=== PATIENT | male | born 1990 | race African-American/Black ===

== ENCOUNTER 2016-09-26 21:34 | Emergency (ER) | payer OTHER ==
[~2016-09-26] VITALS: Ht 193 cm; Wt 83.9 kg
[~2016-09-26 21:34] MED LIST: DIPH50VI14 IV; Divalproex Sodium PO; EPIN0.3P3 IJ; ESCI10TA PO; INSU100V28 SQ; QUET100T PO
[2016-09-26 22:06] LABS: BASOPHILS % (AUTO) 0.2 % (0.0-2.0); DIFF TOTAL % 100 %; EOSINOPHILS % (AUTO) 0.2 % (0.0-6.0); HEMATOCRIT 40 % (39-51); HEMOGLOBIN 13.6 g/dL (13.5-17.5); LYMPHOCYTES # (AUTO) 2.3 /CMM (0.8-4.8); LYMPHOCYTES % (AUTO) 12.3 % (20.0-44.0); MEAN CORPUSCULAR HEMOGLOBIN 33 PG (26.0-33.0); MEAN CORPUSCULAR HGB CONC 34 g/dl (31.0-36.0); MEAN CORPUSCULAR VOLUME 98 fL (80-96); MONOCYTES % (AUTO) 10.4 % (2.0-12.0); NEUTROPHILS # (AUTO) 14.7 /CMM (1.8-8.9); NEUTROPHILS % (AUTO) 76.9 % (43.0-81.0); PLATELET COUNT (AUTO) 316 /CMM (150-450); RED BLOOD CELL COUNT(AUTO) 4.12 MIL/uL (4.5-6.0); WHITE BLOOD COUNT (AUTO) 19.1 K/uL (4.3-11.0)
[2016-09-26 22:13] LABS: ANION GAP 14 (5-14); CALCIUM, SERUM 10.2 mg/dL (8.5-10.1); CARBON DIOXIDE 29 mmol/L (21-32); CHLORIDE 95 mmol/L (98-107); CREATININE 1.2 mg/dL (0.6-1.3); GFR 88 mL/min (>60); GLUCOSE 95 mg/dL (74-106); POTASSIUM 4.4 mmol/L (3.5-5.1); SODIUM SERUM 134 mmol/L (136-145); UREA NITROGEN, BLOOD 30 mg/dL (7-18)
[2016-09-26 22:19] LABS: ACETAMINOPHEN 0 ug/ml (10-30); ALANINE AMINOTRANSFERASE 44 U/L (12-78); ALBUMIN 4.6 g/dL (3.4-5.0); ASPARTATE AMINOTRANSFERASE 92 U/L (15-37); BILIRUBIN,DIRECT 0.2 mg/dL (0.0-0.2); BILIRUBIN,TOTAL 1.1 mg/dL (0.2-1.0); INDIRECT BILIRUBIN 0.9 mg/dL (0.0-1.1); SALICYLATE < 0.2 mg/dL (2.8-20.0); TOTAL PROTEIN, SERUM 9.4 g/dL (6.4-8.2)
[2016-09-26 22:41] LABS: PHENCYCLIDINE SCREEN,URINE NEGATIVE (NEGATIVE)
[2016-09-26 22:44] LABS: CANNABINOID, URINE POSITIVE (NEGATIVE); KETONES,URINE TRACE (NEGATIVE); LEUKOCYTE ESTERASE ,URINE NEGATIVE (NEGATIVE); PH,URINE 5.5 (5.0-8.0)
[2016-09-26 22:55] LABS: ADD UA MICROSCOPIC YES
[2016-09-26 23:01] LABS: ADD URINE CULTURE NO; RBC,URINE 0-2 /HPF (0-2); WBC,URINE 0-2 /HPF (0-3)
[2016-09-27] MEDS ORDERED: OLANZAPINE 5 MG TABLET ONE (01:20)
[2016-09-27] MEDS ORDERED: OLANZAPINE 5 MG TABLET PO ONE (01:30)
[2016-09-27 06:08] VITALS: BP 139/73
== END 2016-09-27 06:22 | disposition home or self-care (01) ==
LOC: ER 21:35
DX: F19.10 Other psychoactive substance abuse, uncomplicated (principal); F20.9 Schizophrenia, unspecified; R44.0 Auditory hallucinations; F17.200 Nicotine dependence, unspecified, uncomplicated; Z79.4 Long term (current) use of insulin
CPT/HCPCS: 36415; 71010-TC; 80048-TC; 80076-TC; 80305; 81000-TC; 85025-TC; A4606; G6038-TC; G6039-TC; G6040-TC; Z7610

== ENCOUNTER 2016-10-19 01:22 | Emergency (ER) | payer OTHER ==
[~2016-10-19] VITALS: Ht 198.1 cm; Wt 79.4 kg
[2016-10-19 03:37] LABS: ANION GAP 13 (5-14); CALCIUM, SERUM 8.7 mg/dL (8.5-10.1); CARBON DIOXIDE 27 mmol/L (21-32); CHLORIDE 101 mmol/L (98-107); GFR 109 mL/min (>60); GLUCOSE 94 mg/dL (74-106); SODIUM SERUM 137 mmol/L (136-145); UREA NITROGEN, BLOOD 20 mg/dL (7-18)
[2016-10-19 03:41] LABS: BASOPHILS % (AUTO) 0.3 % (0.0-2.0); DIFF TOTAL % 100 %; EOSINOPHILS # (AUTO) 0.3 /CMM (0.0-0.7); EOSINOPHILS % (AUTO) 2.7 % (0.0-6.0); HEMATOCRIT 38 % (39-51); HEMOGLOBIN 12.8 g/dL (13.5-17.5); LYMPHOCYTES # (AUTO) 2.8 /CMM (0.8-4.8); LYMPHOCYTES % (AUTO) 24.8 % (20.0-44.0); MEAN CORPUSCULAR HEMOGLOBIN 33 PG (26.0-33.0); MEAN CORPUSCULAR HGB CONC 34 g/dl (31.0-36.0); MEAN CORPUSCULAR VOLUME 99 fL (80-96); MONOCYTES # (AUTO) 1.9 /CMM (0.1-1.30); MONOCYTES % (AUTO) 17.3 % (2.0-12.0); NEUTROPHILS # (AUTO) 6.2 /CMM (1.8-8.9); NEUTROPHILS % (AUTO) 54.9 % (43.0-81.0); PLATELET COUNT (AUTO) 292 /CMM (150-450); RED BLOOD CELL COUNT(AUTO) 3.85 MIL/uL (4.5-6.0); WHITE BLOOD COUNT (AUTO) 11.2 K/uL (4.3-11.0)
[2016-10-19 05:52] VITALS: BP 125/82
== END 2016-10-19 05:54 | disposition home or self-care (01) ==
LOC: ER 01:26
DX: R45.851 Suicidal ideations (principal); Z91.14 Patient's other noncompliance with medication regimen; F20.9 Schizophrenia, unspecified; F17.210 Nicotine dependence, cigarettes, uncomplicated; Z88.8 Allergy status to other drugs, medicaments and biological substances
CPT/HCPCS: 36415; 80048-TC; 85025-TC; A4606; G6040-TC; Z7610

== ENCOUNTER 2017-02-13 04:36 | Emergency (ER) | payer OTHER ==
[~2017-02-13] VITALS: Ht 198.1 cm; Wt 81.6 kg
[2017-02-13 04:40] VITALS: BP 129/104
== END 2017-02-13 05:09 | disposition home or self-care (01) ==
LOC: ER 04:39
DX: J06.9 Acute upper respiratory infection, unspecified (principal); I10 Essential (primary) hypertension; F20.9 Schizophrenia, unspecified; F17.200 Nicotine dependence, unspecified, uncomplicated; Z88.8 Allergy status to other drugs, medicaments and biological substances
CPT/HCPCS: 99281; A4606; Z7610; Z7502

== ENCOUNTER 2017-02-14 01:09 | Emergency (ER) | payer OTHER | END 2017-02-14 01:18 | disposition left against medical advice (07) | LOC: ER 01:09 | DX: Z53.21 Procedure and treatment not carried out due to patient leaving prior to being seen by health care provider (principal) ==

== ENCOUNTER 2017-07-14 17:52 | Emergency (ER) | payer MEDICAID, OTHER ==
[~2017-07-14] VITALS: Ht 185.4 cm; Wt 79.4 kg
[2017-07-14 18:24] LABS: BASOPHILS # (AUTO) 0.1 /CMM (0.0-0.2); BASOPHILS % (AUTO) 0.6 % (0.0-2.0); EOSINOPHILS # (AUTO) 0.3 /CMM (0.0-0.7); EOSINOPHILS % (AUTO) 2.9 % (0.0-6.0); HEMATOCRIT 38 % (39-51); HEMOGLOBIN 12.9 g/dL (13.5-17.5); LYMPHOCYTES # (AUTO) 2.3 /CMM (0.8-4.8); LYMPHOCYTES % (AUTO) 25.7 % (20.0-44.0); MEAN CORPUSCULAR HEMOGLOBIN 33 PG (26.0-33.0); MEAN CORPUSCULAR HGB CONC 34 g/dl (31.0-36.0); MEAN CORPUSCULAR VOLUME 97 fL (80-96); MONOCYTES # (AUTO) 1.3 /CMM (0.1-1.30); MONOCYTES % (AUTO) 13.9 % (2.0-12.0); NEUTROPHILS % (AUTO) 56.9 % (43.0-81.0); PLATELET COUNT (AUTO) 240 /CMM (150-450); RDW COEFFICIENT OF VARIATION 12.1 (11.5-15.0); RED BLOOD CELL COUNT(AUTO) 3.87 MIL/uL (4.5-6.0)
[2017-07-14 18:33] LABS: CARBON DIOXIDE 29 mmol/L (21-32); CHLORIDE 99 mmol/L (98-107); CREATININE 1.2 mg/dL (0.6-1.3); GLUCOSE 125 mg/dL (74-106); POTASSIUM 3.6 mmol/L (3.5-5.1); SODIUM SERUM 134 mmol/L (136-145); UREA NITROGEN, BLOOD 15 mg/dL (7-18)
[2017-07-14 18:34] LABS: APPEARANCE,URINE Clear (CLEAR); BILIRUBIN,URINE MODERATE (NEGATIVE); BLOOD, URINE Negative Ery/uL (NEGATIVE); COLOR,URINE Yellow (YELLOW); KETONES,URINE Trace (NEGATIVE); LEUKOCYTE ESTERASE ,URINE Negative (NEGATIVE); NITRITE, URINE Negative (NEGATIVE); PROTEIN,URINE 100 mg/dl (NEGATIVE); UGLUCOSE Negative (NEGATIVE)
[2017-07-14 18:39] LABS: ALANINE AMINOTRANSFERASE 58 U/L (12-78); ALBUMIN 3.9 g/dL (3.4-5.0); ALCOHOL, BLOOD < 3 mg/dL (0-0); ALKALINE PHOSPHATASE 120 U/L (46-116); ASPARTATE AMINOTRANSFERASE 60 U/L (15-37); BILIRUBIN,DIRECT 0.1 mg/dL (0.0-0.2); BILIRUBIN,TOTAL 0.6 mg/dL (0.2-1.0); TOTAL PROTEIN, SERUM 7.7 g/dL (6.4-8.2)
[2017-07-14 18:40] LABS: ACETAMINOPHEN < 2 ug/ml (10-30); SALICYLATE 0.9 mg/dL (2.8-20.0)
[2017-07-14 18:54] LABS: BACTERIA,URINE Rare /HPF (None Seen); RBC,URINE 0-2 /HPF (0-2); SQUAMOUS EPITHELIAL CELL,UR Few /HPF (None Seen); WBC,URINE 0-2 /HPF (0-3)
--- NOTE | 2017-07-14 19:45 | NUR ---
RECEIVED PATIENT IN STABLE CONDITION. WILL CONTINUE TO MONITOR.
--- NOTE | 2017-07-14 21:38 | NUR ---
CALLED [facility] FOR TRANSPORTATION GOING TO [facility], ETA [phone]
[2017-07-14 22:54] VITALS: BP 124/62
--- NOTE | 2017-07-14 23:01 | NUR ---
REPORT GIVEN TO URBAN AT [facility]. PATIENT ON 5150, EMT AT BEDSIDE FOR TRANSFER. REPORT GIVEN TO EMT WELL. VITALS STABLE. PATIENT TRANSFERED TO [facility] VIA STRETCHER/EMT.
== END 2017-07-14 22:57 ==
LOC: ER 17:54
DX: R45.851 Suicidal ideations (principal); F20.9 Schizophrenia, unspecified; F12.10 Cannabis abuse, uncomplicated; F31.9 Bipolar disorder, unspecified; D64.9 Anemia, unspecified; R79.89 Other specified abnormal findings of blood chemistry; F15.10 Other stimulant abuse, uncomplicated; F19.10 Other psychoactive substance abuse, uncomplicated; F17.200 Nicotine dependence, unspecified, uncomplicated; F10.10 Alcohol abuse, uncomplicated; Z79.4 Long term (current) use of insulin; Z88.8 Allergy status to other drugs, medicaments and biological substances
CPT/HCPCS: 36415; 80048; 80076; 80305; 80329; 81001; 85025; 99285; A4606; G0480 ×2; Z7610; 81000-TC

== ENCOUNTER 2017-09-19 04:21 | Emergency (ER) | payer MEDICAID ==
[~2017-09-19] VITALS: Ht 188 cm; Wt 81.6 kg
[2017-09-19 04:51] VITALS: BP 135/78
[2017-09-19] MEDS ORDERED: ONDANSETRON 4 MG TAB.RAPDIS ONE (07:24)
[2017-09-19] MEDS ORDERED: ONDANSETRON 4 MG TAB.RAPDIS SL ONE (07:30)
== END 2017-09-19 07:39 | disposition home or self-care (01) ==
LOC: ER 04:24
DX: R11.10 Vomiting, unspecified (principal); F31.9 Bipolar disorder, unspecified; F20.9 Schizophrenia, unspecified; F10.10 Alcohol abuse, uncomplicated; F17.200 Nicotine dependence, unspecified, uncomplicated; Z88.8 Allergy status to other drugs, medicaments and biological substances; Z79.4 Long term (current) use of insulin
CPT/HCPCS: 99283; A4606; Q0162; Z7610

== ENCOUNTER 2018-04-21 01:06 | Emergency (ER) | payer MEDICAID ==
[~2018-04-21] VITALS: Ht 193 cm; Wt 80.7 kg
--- NOTE | 2018-04-21 01:23 | NUR ---
BIB SELF C/C "IM HAVING RACING THOUGHTS, I WANT MED CLEARANCE FOR SO [facility]". PT STATES "I HEAR VOICES TO HURT MYSELF, AND SOMETIMES I DO WANT TO HURT MYSELF BY TAKING A DEEP BREATH AND JUMPING INTO THE WATER WITH MY BOOKS". PT DENIES HI. PT IS AAOX4. PT IS CALM AND COOPERATIVE LAYING IN BED WITH WARM BLANKET PROVIDED. SI PRECAUTIONS IN PLACE. PT BELONGINGS REMOVED FROM PT. PT PLACED IN GOWN AND ON APARTMENT COORDINATOR AND POX. RESP EVEN UNLABORED. NO S/S OF ACUTE DISTRESS NOTED. SKIN WARM AND DRY. AWAITLAURA MONTERROSO FOR EVAL.
[2018-04-21 01:32] LABS: BASOPHILS # (AUTO) 0.1 /CMM (0.0-0.2); BASOPHILS % (AUTO) 0.7 % (0.0-2.0); HEMATOCRIT 36 % (39-51); HEMOGLOBIN 12.1 g/dL (13.5-17.5); LYMPHOCYTES # (AUTO) 3.6 /CMM (0.8-4.8); LYMPHOCYTES % (AUTO) 31.1 % (20.0-44.0); MEAN CORPUSCULAR HEMOGLOBIN 33 PG (26.0-33.0); MEAN CORPUSCULAR HGB CONC 34 g/dl (31.0-36.0); MEAN CORPUSCULAR VOLUME 98 fL (80-96); MONOCYTES # (AUTO) 1.7 /CMM (0.1-1.30); MONOCYTES % (AUTO) 14.8 % (2.0-12.0); NEUTROPHILS # (AUTO) 5.5 /CMM (1.8-8.9); NEUTROPHILS % (AUTO) 49.4 % (43.0-81.0); PLATELET COUNT (AUTO) 273 /CMM (150-450); RDW COEFFICIENT OF VARIATION 12.2 (11.5-15.0); RED BLOOD CELL COUNT(AUTO) 3.64 MIL/uL (4.5-6.0); WHITE BLOOD COUNT (AUTO) 11.4 K/uL (4.3-11.0)
[2018-04-21 01:47] LABS: APPEARANCE,URINE CLEAR (CLEAR); BILIRUBIN,URINE NEGATIVE (NEGATIVE); BLOOD, URINE NEGATIVE Ery/uL (NEGATIVE); COLOR,URINE YELLOW (YELLOW); KETONES,URINE NEGATIVE (NEGATIVE); LEUKOCYTE ESTERASE ,URINE NEGATIVE (NEGATIVE); NITRITE, URINE NEGATIVE (NEGATIVE); PROTEIN,URINE NEGATIVE (NEGATIVE); UGLUCOSE NEGATIVE (NEGATIVE)
[2018-04-21 01:48] LABS: CALCIUM, SERUM 8.2 mg/dL (8.5-10.1); CARBON DIOXIDE 28 mmol/L (21-32); CHLORIDE 100 mmol/L (98-107); CREATININE 1.1 mg/dL (0.6-1.3); GLUCOSE 108 mg/dL (74-106); POTASSIUM 3.4 mmol/L (3.5-5.1); SODIUM SERUM 134 mmol/L (136-145); UREA NITROGEN, BLOOD 13 mg/dL (7-18)
--- NOTE | 2018-04-21 01:49 | NUR ---
ERMIAS MARTÍNEZ BEDSIDE WITH PT.
[2018-04-21 01:53] LABS: ALANINE AMINOTRANSFERASE 25 U/L (12-78); ALBUMIN 3.5 g/dL (3.4-5.0); ALCOHOL, BLOOD < 3 mg/dL (0-0); ALKALINE PHOSPHATASE 115 U/L (46-116); ASPARTATE AMINOTRANSFERASE 33 U/L (15-37); BILIRUBIN,DIRECT 0.1 mg/dL (0.0-0.2); BILIRUBIN,TOTAL 0.4 mg/dL (0.2-1.0); TOTAL PROTEIN, SERUM 7.3 g/dL (6.4-8.2)
[2018-04-21 01:54] LABS: ACETAMINOPHEN 0 ug/ml (10-30); SALICYLATE 2.1 mg/dL (2.8-20.0)
[2018-04-21 02:08] LABS: BACTERIA,URINE None seen /HPF (None Seen); MUCUS,URINE Few /LPF (None Seen); RBC,URINE NONE SEEN /HPF (0-2); SQUAMOUS EPITHELIAL CELL,UR Few /HPF (None Seen); WBC,URINE 0-2 /HPF (0-3)
--- NOTE | 2018-04-21 02:36 | NUR ---
Patient is resting comfortably in bed with eyes closed. Easily aroused. VSS
--- NOTE | 2018-04-21 03:56 | NUR ---
NO S/S OF DISTRESS NOTED. PT RESTING IN BED. VSS.
--- NOTE | 2018-04-21 04:02 | NUR ---
eta for [facility] transport 1.5hr trip number [id number]
--- NOTE | 2018-04-21 04:31 | NUR ---
report given to ivis lopez for mj.
--- NOTE | 2018-04-21 05:27 | NUR ---
ambulnz bedside for pt transport to [facility]. no s/s of distress upon discharge. Patient discharged to [facility] nuys in stable condition. Written and verbal after care instructions given. Patient verbalizes understanding of instruction.
[2018-04-21 05:32] VITALS: BP 149/78
== END 2018-04-21 05:32 | disposition home or self-care (01) ==
LOC: ER 01:08
DX: R45.851 Suicidal ideations (principal); F20.9 Schizophrenia, unspecified; F31.9 Bipolar disorder, unspecified; F10.10 Alcohol abuse, uncomplicated; F17.200 Nicotine dependence, unspecified, uncomplicated; Y90.0 Blood alcohol level of less than 20 mg/100 ml; Z88.8 Allergy status to other drugs, medicaments and biological substances; Z79.4 Long term (current) use of insulin
CPT/HCPCS: 36415; 80048; 80076; 80305; 80329; 81001; 85025; 99285; A4606; G0480 ×2; Z7610; 81000-TC

== ENCOUNTER 2019-09-02 03:27 | Emergency (ER) | payer OTHER ==
[~2019-09-02] VITALS: Ht 193 cm; Wt 79.4 kg
--- NOTE | 2019-09-02 03:51 | NUR ---
CARLOS. AAOX4. NO RESP DISTRESS NOTED, BREATHING EVEN AND UNLABORED. AMBULATORY. BROUGHT IN FOR SUICIDAL IDEATION. PER REPORT, PT CAME TO FIRE STATION. DURING ASSESSMENT, PT DENIES SUICIDAL AND HOMICIDAL IDEATION X 2. PT VERBALIZED "I WANT TO BE AROUND POSSITIVE PEOPLE TO ENCOURAGE ME". DESPITE DENIAL OF SI, PT WAS STRIPPED OF CLOTHING, PLACED IN GOWN AND ALL BELONGINGS PLACED IN THE LOCKER LOCATED IN THE UTILITY ROOM. PT ADMITS TO DRINKING AND DOPE USE. PT DESCRIBE DOPE "I SMIKED SOMETHING IN A BLUNT". AT BEDSIDE FRO EVAL. ORDER RECEIVED
[2019-09-02 03:57] LABS: BASOPHILS # (AUTO) 0.1 /CMM (0.0-0.2); BASOPHILS % (AUTO) 0.5 % (0.0-2.0); EOSINOPHILS % (AUTO) 0.1 % (0.0-6.0); HEMATOCRIT 34 % (39-51); HEMOGLOBIN 11.6 g/dL (13.5-17.5); LYMPHOCYTES # (AUTO) 1.7 /CMM (0.8-4.8); LYMPHOCYTES % (AUTO) 11.2 % (20.0-44.0); MEAN CORPUSCULAR HGB CONC 34 g/dl (31.0-36.0); MEAN CORPUSCULAR VOLUME 97 fL (80-96); MONOCYTES # (AUTO) 1.9 /CMM (0.1-1.30); MONOCYTES % (AUTO) 12.5 % (2.0-12.0); NEUTROPHILS # (AUTO) 11.6 /CMM (1.8-8.9); NEUTROPHILS % (AUTO) 75.7 % (43.0-81.0); PLATELET COUNT (AUTO) 305 /CMM (150-450); RED BLOOD CELL COUNT(AUTO) 3.52 MIL/uL (4.5-6.0); WHITE BLOOD COUNT (AUTO) 15.4 K/uL (4.3-11.0)
[2019-09-02 04:04] LABS: CALCIUM, SERUM 9.8 mg/dL (8.5-10.1); CARBON DIOXIDE 27 mmol/L (21-32); CHLORIDE 103 mmol/L (98-107); CREATININE 1.8 mg/dL (0.6-1.3); GLUCOSE 109 mg/dL (74-106); POTASSIUM 3.2 mmol/L (3.5-5.1); SODIUM SERUM 143 mmol/L (136-145); UREA NITROGEN, BLOOD 22 mg/dL (7-18)
[2019-09-02 04:10] LABS: ACETAMINOPHEN 0 ug/ml (10-30); ALANINE AMINOTRANSFERASE 110 U/L (12-78); ALCOHOL, BLOOD < 3 mg/dL (0-0); ALKALINE PHOSPHATASE 105 U/L (46-116); ASPARTATE AMINOTRANSFERASE 155 U/L (15-37); BILIRUBIN,DIRECT 0.2 mg/dL (0.0-0.2); BILIRUBIN,TOTAL 0.8 mg/dL (0.2-1.0); SALICYLATE 1.3 mg/dL (2.8-20.0); TOTAL PROTEIN, SERUM 8.8 g/dL (6.4-8.2)
--- NOTE | 2019-09-02 05:29 | NUR ---
PT WAS AKSED IF HE IS SUICIDAL ONCE AGAIN AND ANSWERED "I NOT THAT KIND OF A PERSON, I JUST WANNA BE AROUND POSITIVE PEOPLE". MADE AWARE.
--- NOTE | 2019-09-02 05:31 | NUR ---
PT OFFERED FOOD BUT REFUSED.
--- NOTE | 2019-09-02 05:50 | NUR ---
Patient discharged to home in stable condition. Written and verbal after care instructions given. Patient verbalizes understanding of instruction. Pt ambulatory with a steady gait
[2019-09-02 05:57] VITALS: BP 157/84
[2019-09-02 06:07] LABS: APPEARANCE,URINE Clear (CLEAR); BILIRUBIN,URINE Negative (NEGATIVE); BLOOD, URINE Negative Ery/uL (NEGATIVE); COLOR,URINE Yellow (YELLOW); KETONES,URINE 15 (NEGATIVE); LEUKOCYTE ESTERASE ,URINE Negative (NEGATIVE); NITRITE, URINE Negative (NEGATIVE); PH,URINE 5.5 (5.0-8.0); PROTEIN,URINE 100 mg/dl (NEGATIVE); UGLUCOSE Negative (NEGATIVE); UROBILINOGEN,URINE 0.2 EU/dL (0.2)
[2019-09-02 06:31] LABS: BACTERIA,URINE Few /HPF (None Seen); SQUAMOUS EPITHELIAL CELL,UR Rare /HPF (None Seen)
== END 2019-09-02 06:01 | disposition home or self-care (01) ==
LOC: ER 03:29
DX: Z00.8 Encounter for other general examination (principal); F20.9 Schizophrenia, unspecified; F31.9 Bipolar disorder, unspecified; F17.200 Nicotine dependence, unspecified, uncomplicated; Z88.8 Allergy status to other drugs, medicaments and biological substances; Z79.4 Long term (current) use of insulin; Z79.899 Other long term (current) drug therapy
CPT/HCPCS: 36415; 80048; 80076; 80305; 80307; 80329; 81001; 85025; 87086; 99283; G0480; 81000-TC

== ENCOUNTER 2019-11-09 12:22 | Emergency (ER) | payer MEDICAID, OTHER ==
[~2019-11-09] VITALS: Ht 177.8 cm; Wt 74.8 kg
--- NOTE | 2019-11-09 12:54 | NUR ---
bib RA C/O SUICIDAL IDEATION WITH NO PLAN. PATIENT A/OX4, BREATHING EVEN AND UNLABORED, SITTER AT BEDSIDE, KEPT COMFORTABLE, CHANGED INTO GOWN. BELONGINGS TAKEN AND PLACED IN SAFE.
[2019-11-09 13:28] LABS: CALCIUM, SERUM 9.9 mg/dL (8.5-10.1); CARBON DIOXIDE 29 mmol/L (21-32); CHLORIDE 101 mmol/L (98-107); CREATININE 1.5 mg/dL (0.6-1.3); GLUCOSE 142 mg/dL (74-106); POTASSIUM 3.9 mmol/L (3.5-5.1); SODIUM SERUM 141 mmol/L (136-145); UREA NITROGEN, BLOOD 27 mg/dL (7-18)
[2019-11-09] MEDS ORDERED: OLANZAPINE 5 MG TABLET PO ONE (13:30)
[2019-11-09] MEDS ORDERED: LORAZEPAM 1 MG TABLET PO ONE (13:30)
[2019-11-09 13:33] LABS: BASOPHILS # (AUTO) 0.1 /CMM (0.0-0.2); BASOPHILS % (AUTO) 0.6 % (0.0-2.0); EOSINOPHILS % (AUTO) 0.4 % (0.0-6.0); HEMATOCRIT 35 % (39-51); HEMOGLOBIN 11.7 g/dL (13.5-17.5); LYMPHOCYTES # (AUTO) 1.5 /CMM (0.8-4.8); LYMPHOCYTES % (AUTO) 11.8 % (20.0-44.0); MEAN CORPUSCULAR HGB CONC 34 g/dl (31.0-36.0); MEAN CORPUSCULAR VOLUME 99 fL (80-96); MONOCYTES # (AUTO) 1.6 /CMM (0.1-1.30); MONOCYTES % (AUTO) 12.5 % (2.0-12.0); NEUTROPHILS # (AUTO) 9.4 /CMM (1.8-8.9); NEUTROPHILS % (AUTO) 74.7 % (43.0-81.0); PLATELET COUNT (AUTO) 424 /CMM (150-450); RED BLOOD CELL COUNT(AUTO) 3.53 MIL/uL (4.5-6.0); WHITE BLOOD COUNT (AUTO) 12.6 K/uL (4.3-11.0)
[2019-11-09 13:34] LABS: ACETAMINOPHEN 0 ug/ml (10-30); ALANINE AMINOTRANSFERASE 26 U/L (12-78); ALCOHOL, BLOOD < 3 mg/dL (0-0); ALKALINE PHOSPHATASE 110 U/L (46-116); ASPARTATE AMINOTRANSFERASE 31 U/L (15-37); BILIRUBIN,DIRECT 0.1 mg/dL (0.0-0.2); BILIRUBIN,TOTAL 0.5 mg/dL (0.2-1.0); SALICYLATE 2.5 mg/dL (2.8-20.0); TOTAL PROTEIN, SERUM 9.2 g/dL (6.4-8.2)
[2019-11-09] MEDS ORDERED: OLANZAPINE 5 MG TABLET ONE (13:38)
[2019-11-09] MEDS ORDERED: LORAZEPAM 1 MG TABLET ONE (13:38)
--- NOTE | 2019-11-09 13:47 | NUR ---
URINE SAMPLE SENT TO LAB. RING AT BEDSIDE FOR CONSULT, PER PATIENT "I WILL RUN INTO TRAFFIC"
--- NOTE | 2019-11-09 13:57 | NUR ---
Social service consult requested by MD for suicidal ideations with a plan. [facility] met with the pt bedside. [facility] introduced self and purpose of visit. Pt is alert and oriented x2. Pt appears disheveled and unkempt. Pt has disorganized thought process. Pt appears paranoid and delusional. pt states, he has suicidal thoughts with a plan to run into traffic. Pt randomly states, earlier today he was standing behind a train. Pt is exhibiting bizarre behavior and responding to internal stimuli. Pt appears to be preoccupied with his own thoughts. [facility] contacted Vito at [facility] for voluntary [phone]. Per Vito they will have a bed for the pt. [facility] to fax clinicals once labs are available and pt is medically cleared. [facility] updated MIKE Hopkins and LUZMA Braga regarding pt's disposition.
[2019-11-09 14:01] LABS: APPEARANCE,URINE Clear (CLEAR); BILIRUBIN,URINE Negative (NEGATIVE); BLOOD, URINE Negative Ery/uL (NEGATIVE); COLOR,URINE Yellow (YELLOW); KETONES,URINE Negative (NEGATIVE); LEUKOCYTE ESTERASE ,URINE Negative (NEGATIVE); NITRITE, URINE Negative (NEGATIVE); PH,URINE 6.5 (5.0-8.0); PROTEIN,URINE 30 mg/dl (NEGATIVE); UGLUCOSE Negative (NEGATIVE); UROBILINOGEN,URINE 0.2 EU/dL (0.2)
[2019-11-09 14:04] LABS: BACTERIA,URINE Rare /HPF (None Seen); RBC,URINE 0-2 /HPF (0-2); SQUAMOUS EPITHELIAL CELL,UR Rare /HPF (None Seen); WBC,URINE 0-2 /HPF (0-3)
--- NOTE | 2019-11-09 14:40 | NUR ---
Sigifredo che in ED - 11/09/19 at 1603 by OMERO CALLED CRISIS MONOTYPE OPERATOR. NO ANSWER. VOICEMAIL FULL. NO MESSAGE LEFT.
--- NOTE | 2019-11-09 14:56 | NUR ---
VISOR INSTALLER faxed clinical referral packet to [facility] intake .
--- NOTE | 2019-11-09 14:58 | NUR ---
B2B OUTSIDE SALES REPRESENTATIVE received a call from [facility] informing SW they will send clinicals to [place] and follow up. B2B OUTSIDE SALES REPRESENTATIVE requested for CJ to follow up with ED and gave him the contact information.
--- NOTE | 2019-11-09 16:14 | NUR ---
CALLED [facility] FOR TRANSPORT TO [facility]. ETA [phone].
--- NOTE | 2019-11-09 16:24 | NUR ---
NAPHTHALENE OPERATOR HELPER [facility] and spoke with Antonina regarding an updated. Per [facility], there are no male beds available at [place] and pt has been referred to [facility].
--- NOTE | 2019-11-09 17:29 | NUR ---
CALLED [facility]. PT HAS BEEN ACCEPTED TO [facility] ROOM 633-A. NUMBER FOR REPORT [phone] EXT [phone].
--- NOTE | 2019-11-09 17:47 | NUR ---
REPORT GIVEN TO BERNA MCKEON AT [facility].
[2019-11-09 19:39] VITALS: BP 123/62
--- NOTE | 2019-11-09 20:09 | NUR ---
REPORT GIVEN TO JAVA FRONT END WEB DEVELOPER, BELONGINGS GIVEN TO PATIENT. A/OX4, BREATHING EVEN AND UNLABORED, NO DISTRESS NOTED. PATIENT LEFT IN STABLE CONDITION.
== END 2019-11-09 20:10 ==
LOC: ER 12:25
DX: R45.851 Suicidal ideations (principal); Z91.14 Patient's other noncompliance with medication regimen; F12.90 Cannabis use, unspecified, uncomplicated; F20.9 Schizophrenia, unspecified; F31.9 Bipolar disorder, unspecified; Z88.8 Allergy status to other drugs, medicaments and biological substances; Z79.899 Other long term (current) drug therapy; Z79.4 Long term (current) use of insulin
CPT/HCPCS: 36415; 80048; 80076; 80305; 80307; 80329; 81001; 85025; 99285; G0480; 81000-TC

== ENCOUNTER 2019-11-30 22:11 | Emergency (ER) | payer MEDICAID ==
[~2019-11-30] VITALS: Ht 177.8 cm; Wt 74.8 kg
[2019-11-30 23:14] LABS: APPEARANCE,URINE Clear (CLEAR); BILIRUBIN,URINE Negative (NEGATIVE); BLOOD, URINE Negative Ery/uL (NEGATIVE); COLOR,URINE Yellow (YELLOW); KETONES,URINE Negative (NEGATIVE); LEUKOCYTE ESTERASE ,URINE Negative (NEGATIVE); NITRITE, URINE Negative (NEGATIVE); PH,URINE 6.5 (5.0-8.0); PROTEIN,URINE Negative (NEGATIVE); UGLUCOSE Negative (NEGATIVE); UROBILINOGEN,URINE 0.2 EU/dL (0.2)
[2019-11-30 23:19] LABS: BASOPHILS % (AUTO) 0.3 % (0.0-2.0); EOSINOPHILS % (AUTO) 0.1 % (0.0-6.0); HEMATOCRIT 37 % (39-51); HEMOGLOBIN 12.2 g/dL (13.5-17.5); LYMPHOCYTES # (AUTO) 1.2 /CMM (0.8-4.8); LYMPHOCYTES % (AUTO) 8.9 % (20.0-44.0); MEAN CORPUSCULAR HGB CONC 33 g/dl (31.0-36.0); MEAN CORPUSCULAR VOLUME 98 fL (80-96); MONOCYTES # (AUTO) 1.4 /CMM (0.1-1.30); MONOCYTES % (AUTO) 10.3 % (2.0-12.0); NEUTROPHILS # (AUTO) 11.1 /CMM (1.8-8.9); NEUTROPHILS % (AUTO) 80.4 % (43.0-81.0); PLATELET COUNT (AUTO) 295 /CMM (150-450); RED BLOOD CELL COUNT(AUTO) 3.72 MIL/uL (4.5-6.0); WHITE BLOOD COUNT (AUTO) 13.9 K/uL (4.3-11.0)
[2019-11-30] MEDS ORDERED: OLANZAPINE 5 MG TABLET ONE (23:19)
[2019-11-30 23:26] LABS: CALCIUM, SERUM 10.1 mg/dL (8.5-10.1); CARBON DIOXIDE 31 mmol/L (21-32); CHLORIDE 95 mmol/L (98-107); CREATININE 1.4 mg/dL (0.6-1.3); GLUCOSE 100 mg/dL (74-106); POTASSIUM 4.3 mmol/L (3.5-5.1); SODIUM SERUM 134 mmol/L (136-145); UREA NITROGEN, BLOOD 17 mg/dL (7-18)
--- NOTE | 2019-11-30 23:28 | NUR ---
BIBKurtis, WALKED IN TO ER. AAOX4. NO RESP DISTRESS NOTED. AMBULATORY. CAME IN FOR FEELING EMOTIONAL. PT VERBALIZED THAT HE FEELS HURTING HIMSELF BUT DOES NOT HAVE ANY SPECIFIC PLANS. AUDITORY HALLUCINATIONS - "ANGELS TELLING HIM TO BE RESPONSIBLE". PT ALSO VERBALIZED THAT HE WANTS TO AROUND POSITIVE PEOPLE. PT IS GOWN AND BELONGINGS AND KEPT IN LOCKER. SITTER AT BEDSIDE FOR PRECAUTION. WAS AT BEDSIDE FOR EVAL. URINE COLLECTED AND SENT OT LAB
[2019-11-30] MEDS ORDERED: OLANZAPINE 5 MG TABLET PO ONE (23:30)
[2019-11-30 23:32] LABS: ACETAMINOPHEN 0 ug/ml (10-30); ALANINE AMINOTRANSFERASE 49 U/L (12-78); ALBUMIN 4.3 g/dL (3.4-5.0); ALCOHOL, BLOOD < 3 mg/dL (0-0); ALKALINE PHOSPHATASE 106 U/L (46-116); ASPARTATE AMINOTRANSFERASE 137 U/L (15-37); BILIRUBIN,DIRECT 0.1 mg/dL (0.0-0.2); BILIRUBIN,TOTAL 0.6 mg/dL (0.2-1.0); SALICYLATE 1.8 mg/dL (2.8-20.0); TOTAL PROTEIN, SERUM 9.2 g/dL (6.4-8.2)
--- NOTE | 2019-12-01 01:43 | NUR ---
PT VERBALIZED THAT HE FEELS CALMER NOW AND DENIES BEING SUICIDAL NOR HOMICIDAL. MD MADE AWARE.
--- NOTE | 2019-12-01 02:40 | NUR ---
PT IN BED SLEEPING AND RESTING COMFORTABLY. NAD NOTED
--- NOTE | 2019-12-01 06:12 | NUR ---
PT DENIES BEING SUICIDAL AND VERBALIZES THAT HE FEELS BETTER AND CALMER.
--- NOTE | 2019-12-01 06:17 | NUR ---
Patient discharged to home in stable condition. Written and verbal after care instructions given. Patient verbalizes understanding of instruction. Pt ambulatory with a steady gait. Homeless waiver signed. provided with pants
[2019-12-01 06:18] VITALS: BP 141/84
== END 2019-12-01 06:19 | disposition home or self-care (01) ==
LOC: ER 22:11
DX: R45.851 Suicidal ideations (principal); F31.9 Bipolar disorder, unspecified; F20.9 Schizophrenia, unspecified; F15.10 Other stimulant abuse, uncomplicated; Z79.4 Long term (current) use of insulin; Z79.899 Other long term (current) drug therapy; Z88.8 Allergy status to other drugs, medicaments and biological substances
CPT/HCPCS: 36415; 80048; 80076; 80305; 80307; 80329; 81001; 85025; 99285; G0480; 81000-TC

== ENCOUNTER 2020-01-11 17:04 | Emergency (ER) | payer MEDICAID ==
[~2020-01-11] VITALS: Ht 182.9 cm; Wt 89.8 kg
[2020-01-11] MEDS ORDERED: DIVALPROEX SODIUM 500 MG TABLET.DR PO ONE ×2 (17:12→17:30)
--- NOTE | 2020-01-11 17:22 | NUR ---
CARLOS FROM STREET TO ER BED 6. AAOX4. DROWSY AND LETHARGIC. BROUGHT IN FOR WITNESSED SEIZURE. NO REPORTED HT. NO NOTED ORAL INJURY. PT IS REPORTED NOT COMPLIANT WITH HIS MEDICATIONS. PT PLACED ON SEIZURE PRECAUTION, PADDED SIDERAILS IN PLACE. MD WAS AT BEDSIDE FOR EVAL. ORDERD RECEIVED, NOTED AND CARRIED OUT. BLOOD DRAWNA ND GIVEN TO CORRECTIONAL TREATMENT SPECIALIST
[2020-01-11 17:26] LABS: BASOPHILS % (AUTO) 0.4 % (0.0-2.0); EOSINOPHILS % (AUTO) 0.3 % (0.0-6.0); HEMATOCRIT 34 % (39-51); HEMOGLOBIN 11.2 g/dL (13.5-17.5); LYMPHOCYTES # (AUTO) 1.1 /CMM (0.8-4.8); LYMPHOCYTES % (AUTO) 14.4 % (20.0-44.0); MEAN CORPUSCULAR HGB CONC 34 g/dl (31.0-36.0); MEAN CORPUSCULAR VOLUME 100 fL (80-96); MONOCYTES # (AUTO) 0.6 /CMM (0.1-1.30); MONOCYTES % (AUTO) 7.6 % (2.0-12.0); NEUTROPHILS # (AUTO) 5.6 /CMM (1.8-8.9); NEUTROPHILS % (AUTO) 77.3 % (43.0-81.0); PLATELET COUNT (AUTO) 268 /CMM (150-450); RED BLOOD CELL COUNT(AUTO) 3.37 MIL/uL (4.5-6.0); WHITE BLOOD COUNT (AUTO) 7.3 K/uL (4.3-11.0)
[2020-01-11 17:36] LABS: CALCIUM, SERUM 9.2 mg/dL (8.5-10.1); CARBON DIOXIDE 31 mmol/L (21-32); CHLORIDE 103 mmol/L (98-107); CREATININE 1.2 mg/dL (0.6-1.3); GLUCOSE 99 mg/dL (74-106); SODIUM SERUM 139 mmol/L (136-145); UREA NITROGEN, BLOOD 14 mg/dL (7-18)
[2020-01-11 17:42] LABS: ALANINE AMINOTRANSFERASE 58 U/L (12-78); ALBUMIN 3.5 g/dL (3.4-5.0); ALKALINE PHOSPHATASE 93 U/L (46-116); ASPARTATE AMINOTRANSFERASE 46 U/L (15-37); BILIRUBIN,TOTAL 0.2 mg/dL (0.2-1.0); TOTAL PROTEIN, SERUM 8.1 g/dL (6.4-8.2)
[2020-01-11 17:53] LABS: VALPROIC ACID < 3 ug/mL (50-100)
[2020-01-11] MEDS ORDERED: LORAZEPAM INJ 2 MG/ML VIAL IV ONE (18:00)
[2020-01-11] MEDS ORDERED: LORAZEPAM INJ 2 MG/ML VIAL ONE (18:12)
--- NOTE | 2020-01-11 18:56 | NUR ---
PT UP IN BED. PROVIDED WITH FOOD AND EATING WELL. NAD NOTED
--- NOTE | 2020-01-11 19:34 | NUR ---
PT AMBULATED TO BATHROOM ON STEADY GAIT W/O ASSIST
--- NOTE | 2020-01-11 19:41 | NUR ---
Patient discharged to home in stable condition. Written and verbal after care instructions given. Patient verbalizes understanding of instruction.IV removed. Catheter intact and site benign. Pressure and 4x4 applied to site. No bleeding noted. Pt ambulatory with a steady gait
[2020-01-11 19:43] VITALS: BP 111/56
== END 2020-01-11 19:43 | disposition home or self-care (01) ==
LOC: ER 17:09
DX: G40.909 Epilepsy, unspecified, not intractable, without status epilepticus (principal); Z76.0 Encounter for issue of repeat prescription; Z91.14 Patient's other noncompliance with medication regimen; F20.9 Schizophrenia, unspecified; F31.9 Bipolar disorder, unspecified; F17.200 Nicotine dependence, unspecified, uncomplicated; Z88.8 Allergy status to other drugs, medicaments and biological substances; Z79.899 Other long term (current) drug therapy; Z59.0 Homelessness
CPT/HCPCS: 36415; 70450; 80053; 80164; 85025; 96374; 99284; J2060

== ENCOUNTER 2020-10-17 15:25 | Emergency (ER) | payer MEDICAID, OTHER ==
[~2020-10-17] VITALS: Ht 180.3 cm; Wt 79.4 kg
[2020-10-17 16:26] LABS: BASOPHILS # (AUTO) 0.2 /CMM (0.0-0.2); BASOPHILS % (AUTO) 1.4 % (0.0-2.0); EOSINOPHILS % (AUTO) 1.4 % (0.0-6.0); HEMATOCRIT 36 % (39-51); LYMPHOCYTES # (AUTO) 2.1 /CMM (0.8-4.8); LYMPHOCYTES % (AUTO) 18.7 % (20.0-44.0); MEAN CORPUSCULAR HGB CONC 33 g/dl (31.0-36.0); MEAN CORPUSCULAR VOLUME 97 fL (80-96); MONOCYTES # (AUTO) 1.3 /CMM (0.1-1.30); MONOCYTES % (AUTO) 11.5 % (2.0-12.0); NEUTROPHILS # (AUTO) 7.6 /CMM (1.8-8.9); PLATELET COUNT (AUTO) 339 /CMM (150-450); RED BLOOD CELL COUNT(AUTO) 3.71 MIL/uL (4.5-6.0); WHITE BLOOD COUNT (AUTO) 11.3 K/uL (4.3-11.0)
[2020-10-17 16:36] LABS: BILIRUBIN,URINE SMALL (NEGATIVE); COLOR,URINE YELLOW (YELLOW); LEUKOCYTE ESTERASE ,URINE NEGATIVE (NEGATIVE); NITRITE, URINE NEGATIVE (NEGATIVE); PH,URINE 5.5 (5.0-8.0); PROTEIN,URINE NEGATIVE (NEGATIVE); UGLUCOSE NEGATIVE (NEGATIVE)
[2020-10-17 16:48] LABS: ALANINE AMINOTRANSFERASE 63 U/L (12-78); ALBUMIN 3.8 g/dL (3.4-5.0); ALCOHOL, BLOOD < 3 mg/dL (0-0); ALKALINE PHOSPHATASE 104 U/L (46-116); ASPARTATE AMINOTRANSFERASE 74 U/L (15-37); BILIRUBIN,DIRECT 0.2 mg/dL (0.0-0.2); BILIRUBIN,TOTAL 0.6 mg/dL (0.2-1.0); CALCIUM, SERUM 9.5 mg/dL (8.5-10.1); CARBON DIOXIDE 29 mmol/L (21-32); CHLORIDE 95 mmol/L (98-107); CREATININE 1.2 mg/dL (0.6-1.3); GLUCOSE 149 mg/dL (74-106); POTASSIUM 3.7 mmol/L (3.5-5.1); SODIUM SERUM 134 mmol/L (136-145); TOTAL PROTEIN, SERUM 8.9 g/dL (6.4-8.2); UREA NITROGEN, BLOOD 27 mg/dL (7-18)
[2020-10-17 16:55] LABS: RBC,URINE 0-2 /HPF (0-2); SQUAMOUS EPITHELIAL CELL,UR 0-2 /HPF (None Seen); WBC,URINE 0-2 /HPF (0-3)
[2020-10-17 16:56] LABS: BACTERIA,URINE None seen /HPF (None Seen)
[2020-10-17 18:01] LABS: ACETAMINOPHEN < 10 ug/ml (10-30)
[2020-10-17 20:49] VITALS: BP 114/68
== END 2020-10-17 23:27 ==
LOC: ER 15:56
DX: R45.851 Suicidal ideations (principal); F20.9 Schizophrenia, unspecified; F19.10 Other psychoactive substance abuse, uncomplicated; Z82.49 Family history of ischemic heart disease and other diseases of the circulatory system; Z88.8 Allergy status to other drugs, medicaments and biological substances; F31.9 Bipolar disorder, unspecified; Z20.822 Contact with and (suspected) exposure to COVID-19
CPT/HCPCS: 36415; 80048; 80076; 80299; 80307; 80320; 81001; 85025; 87426; 99285; C9803; G0480

== ENCOUNTER 2020-12-27 10:09 | Emergency (ER) | payer OTHER ==
[~2020-12-27] VITALS: Ht 180.3 cm; Wt 81.6 kg
[2020-12-27] MEDS ORDERED: OLANZAPINE 5 MG TABLET PO ONE (10:30)
[2020-12-27] MEDS ORDERED: OLANZAPINE 5 MG TABLET ONE (10:34)
--- NOTE | 2020-12-27 10:36 | NUR ---
BIBS, WALKED IN TO ER. TO ER BED 15. AAOX4. NOT IN RESP DISTRESS. AMBULATORY. CAME IN FOR SUICIDAL AND HOMICIDAL THOUGHT W/O ANY SPECIFIC PLANS. DURING PT ASSESSMENT, PT VERBALIZED THAT HE ONLY HAVE THOUGHT AND WILL NOT DO ANYTHING TO HURT HIMSELF NOR OTHER, HE CAME TO GET HELP WITH THE THOUGHT THAT HE HAVE SO I DOES NOT BECOME REALITY PER THE PT. PT IS CALM, COOPERATIVE AND COMPLIANT. PT WAS GOWNED, BELONGINGS PLACED IN LOCKER LOCATED IN THE UTILITY ROOM. PT IS SEELKING FOR VOLUNTARY HELP. MD WAS AT THE BEDSIDE FOR EVAL. ORDERS RECEIVED, NOTED AND CARRIED OUT
--- NOTE | 2020-12-27 10:38 | NUR ---
urine collected and sent to the lab
--- NOTE | 2020-12-27 10:40 | NUR ---
SECUTIRY AT BEDSIDE FOR WANDING. 1:1 SITTER AT BEDSIDE.
[2020-12-27 10:42] LABS: CALCIUM, SERUM 9.5 mg/dL (8.5-10.1); CARBON DIOXIDE 28 mmol/L (21-32); CHLORIDE 102 mmol/L (98-107); CREATININE 1.4 mg/dL (0.6-1.3); GLUCOSE 101 mg/dL (74-106); SODIUM SERUM 140 mmol/L (136-145); UREA NITROGEN, BLOOD 26 mg/dL (7-18)
[2020-12-27 10:44] LABS: HEMOGLOBIN 11.2 g/dL (13.5-17.5)
[2020-12-27 10:48] LABS: ACETAMINOPHEN 0 ug/ml (10-30); ALANINE AMINOTRANSFERASE 136 U/L (12-78); ALBUMIN 3.8 g/dL (3.4-5.0); ALCOHOL, BLOOD < 3 mg/dL (0-0); ALKALINE PHOSPHATASE 111 U/L (46-116); ASPARTATE AMINOTRANSFERASE 382 U/L (15-37); BASOPHILS # (AUTO) 0.1 /CMM (0.0-0.2); BASOPHILS % (AUTO) 0.6 % (0.0-2.0); BILIRUBIN,DIRECT 0.2 mg/dL (0.0-0.2); BILIRUBIN,TOTAL 0.9 mg/dL (0.2-1.0); EOSINOPHILS % (AUTO) 0.3 % (0.0-6.0); HEMATOCRIT 34 % (39-51); LYMPHOCYTES # (AUTO) 2.4 /CMM (0.8-4.8); LYMPHOCYTES % (AUTO) 11.8 % (20.0-44.0); MEAN CORPUSCULAR HGB CONC 33 g/dl (31.0-36.0); MEAN CORPUSCULAR VOLUME 97 fL (80-96); MONOCYTES # (AUTO) 3.3 /CMM (0.1-1.30); MONOCYTES % (AUTO) 16.1 % (2.0-12.0); NEUTROPHILS # (AUTO) 14.5 /CMM (1.8-8.9); NEUTROPHILS % (AUTO) 71.2 % (43.0-81.0); PLATELET COUNT (AUTO) 240 /CMM (150-450); RED BLOOD CELL COUNT(AUTO) 3.45 MIL/uL (4.5-6.0); TOTAL PROTEIN, SERUM 8.4 g/dL (6.4-8.2); WHITE BLOOD COUNT (AUTO) 20.3 K/uL (4.3-11.0)
--- NOTE | 2020-12-27 12:40 | NUR ---
SS Consult: SS Consult requested for SI. The pt. is a 30 year old Black male . SW met with pt. bedside. Pt. appears unkempt. Pt. makes poor eye contact and is responding to internal stimuli. Pt. is alert & oriented x 4. Patient stated that he has been feeling suicidal for the last few days. Patient stated, I will hurt myself. Per pt. he has been diagnosed with Schizoaffective disorder in the past and is not on any psychotropic medications at the moment. SW offered pt. voluntary psychiatric hospitalization and patient is agreeable. The pt. stated he has used Cannabinoids recently. Pt. also tested positive for amphetamines. Pt. has poor insight & poor judgement. Pt. denies HI. SW explored pt.s housing. Pt. stated that he has een living with his mentor. Pt. could not provide SW with address or phone number. Patient denies being homeless. Plan: SW referred pt. to [facility] [[address] [place] [id number] ] for inpatient psychiatric treatment.SW provided pt. with the following addiction resources and pt. accepted them: ADDICTION RESOURCES For Drugs and Alcohol [facility] Substance Abuse Helpline([facility])-[facility] Outpatient treatment, residential treatment, recovery support for youth and adults [facility] www.actionfamilycounseling.Yoolink [facility] Teen programs for drug/alcohol education and support [facility] [place]. Program for adults, sliding scale provides support and education [facility] www.Ground Zero Group CorporationForaation.org [place]; Outpatient/residential treatment programs; transition to sober living [facility] www.cri-help.org [place]; Outpatient and residential treatment programs; transition to sober living [facility] Balwinder Loya; Outpatient education and supportive programs for teens and adults [facility] www.oasiswomensrecovery.org Jaylincitizens baptist; Residential treatment and work program for females only [facility] www.ReDigi.BBspace Tim: Outpatient/residential treatment program for teens and young adults [facility] www.[facility]health.org [place] [facility], inpatient, outpatient for adults and youth [facility]. [facility]; Outpatient programs and referrals to community residential programs. Alcoholics Anonymous -SFV information and meeting and schedules www.aa-intergroup.org Dd-Lbnr-Utywfnf https://al-anon.org/ Strong support groups for family of alcoholics. Marijuana Anonymous www.Teachbaseistrict6.org -sfv listing of meetings Narcotics Anonymous www.na.org SOBER LIVING RESOURCES [facility] www.soberhousing.net A non-profit agency that provides resources to recovery and sober living homes throughout [place], [facility] Sober Living Homes: A Work in Progress, Anish [facility], [place] [facility] Womens Sober Living Homes: [facility] x [phone] My New Beginning, [place] [facility] Sober Living Homes: [facility] Counseling--Outpatient [facility] [address] [place] [address] (Specializes in in-depth psychotherapy for emotional distress: anxiety, depression, interpersonal conflicts, life transitions, childhood abuse) [facility] [address] [place] [address] (Assist with solving problem marital difficulties, separation & divorce, aging parents, & grief, chronic & terminal illness) [facility] [address] [place] [address] (Deal with loss & grief, anxiety, marital difficulties) [facility] Health [facility] [address] [place] [address] (Provide in-home mental services to people who are incapable of leaving their homes) [facility] the Elderly Senior Service/Resource Center [address] [place] [address] [facility] [address] [place] [address] PSYCHIATRIC OUTPATIENT SERVICES [facility] Partial Hospitalization and Intensive Outpatient Program (Managed Care and [place] Only)[address] [facility] [phone] [facility] Partial Hospitalization and Outpatient [id number] [facility]. [address] [place], [place] [phone] [facility] Partial Hospitalization and Outpatient Wle[address] [place], [place] [phone] [facility] [id number] [place], [place] [phone] [facility] Partial Hospitalization and Outpatient [id number] Emelita [facility] Balwinder Loya, [phone] TARSHA COLBY [facility] [address] [facility] [place] [address]
[2020-12-27 13:18] LABS: LYMPHOCYTES % (MANUAL) 10 % (16-48); MONOCYTES % (MANUAL) 18 % (0-11.0); NEUTROPHILS % (MANUAL) 72 (42-76)
--- NOTE | 2020-12-27 13:51 | NUR ---
CALLED [facility] FOR CONFIRMATION OF RECIEVING CLINICAL INFO. SPOKE TO LANA AND THEY ARE CURRENTLY REVIEWING CLINICALS. WILL CALL BACK.
--- NOTE | 2020-12-27 14:44 | NUR ---
PER [facility] INTAKE PT IS ACCEPTED AT [facility] AND GIVE REPORT AFTER 4PM TO [phone]
--- NOTE | 2020-12-27 15:23 | NUR ---
CALLED [facility] FOR TRANSPORT TO [facility]. ETA 30-45 MINUTES.
--- NOTE | 2020-12-27 15:34 | NUR ---
CALLED [facility] FOR TRANSPORT AND DELAY TRANSPORT TIME. ETA 60-75 MINUTES.
--- NOTE | 2020-12-27 16:25 | NUR ---
REPORT GIVEN TO [facility] WALKER [facility].
[2020-12-27 17:31] VITALS: BP 132/70
--- NOTE | 2020-12-27 17:32 | NUR ---
Note christianojacobo in EDM - 12/27/20 at 1733 by GILDARDO Patient alert and oriented x3. Denies pain. In room air and denies SOB. Patient is provided with dishcharge instructions. The patient left ER in stable condition via arranged transpo.
--- NOTE | 2020-12-27 17:32 | NUR ---
REPORT GIVEN TO EMS FOR PT TRANSFER TO [facility].
== END 2020-12-27 17:33 ==
LOC: ER 10:12
DX: R45.851 Suicidal ideations (principal); F19.10 Other psychoactive substance abuse, uncomplicated; F15.10 Other stimulant abuse, uncomplicated; F12.10 Cannabis abuse, uncomplicated; D72.829 Elevated white blood cell count, unspecified; R74.01 Elevation of levels of liver transaminase levels; F31.9 Bipolar disorder, unspecified; F20.9 Schizophrenia, unspecified; Z20.822 Contact with and (suspected) exposure to COVID-19
CPT/HCPCS: 36415; 80048; 80076; 80299; 80307; 80320; 85007; 85025; 87426; 99285; C9803; G0480

== ENCOUNTER 2021-03-04 00:30 | Emergency (ER) | payer OTHER ==
[~2021-03-04] VITALS: Ht 180.3 cm; Wt 81.6 kg
--- NOTE | 2021-03-04 00:32 | NUR ---
PT BIBSELF C/O SUICIDAL IDEATION WITH PLAN TO JUMP IN FRONT OF TRAIN. PT AAOX4. CALM AND COOPERATIVE. VITAL SIGNS STABLE. RESPIRATIONS EVEN AND UNLABORED. AMBULATORY WITH STEADY GAIT. NO ACUTE DISTRESS NOTED AT THIS TIME. SUICIDAL PRECAUTIONS INITIATED.
--- NOTE | 2021-03-04 00:33 | NUR ---
URINE COLLECTED AND SENT TO LAB
--- NOTE | 2021-03-04 00:47 | NUR ---
DOCUMENT EXAMINER AT BEDSIDE FOR BLOOD DRAW
[2021-03-04 01:00] LABS: BASOPHILS # (AUTO) 0.1 /CMM (0.0-0.2); BASOPHILS % (AUTO) 0.4 % (0.0-2.0); EOSINOPHILS % (AUTO) 1.2 % (0.0-6.0); HEMATOCRIT 35 % (39-51); HEMOGLOBIN 11.6 g/dL (13.5-17.5); LYMPHOCYTES # (AUTO) 1.9 /CMM (0.8-4.8); LYMPHOCYTES % (AUTO) 14.5 % (20.0-44.0); MEAN CORPUSCULAR HGB CONC 33 g/dl (31.0-36.0); MEAN CORPUSCULAR VOLUME 100 fL (80-96); MONOCYTES # (AUTO) 1.3 /CMM (0.1-1.30); MONOCYTES % (AUTO) 9.9 % (2.0-12.0); NEUTROPHILS # (AUTO) 9.8 /CMM (1.8-8.9); PLATELET COUNT (AUTO) 221 /CMM (150-450); RED BLOOD CELL COUNT(AUTO) 3.53 MIL/uL (4.5-6.0); WHITE BLOOD COUNT (AUTO) 13.2 K/uL (4.3-11.0)
[2021-03-04 01:04] LABS: BILIRUBIN,URINE NEGATIVE (NEGATIVE); COLOR,URINE YELLOW (YELLOW); LEUKOCYTE ESTERASE ,URINE NEGATIVE (NEGATIVE); NITRITE, URINE NEGATIVE (NEGATIVE); PROTEIN,URINE TRACE mg/dl (NEGATIVE); UGLUCOSE NEGATIVE (NEGATIVE); UROBILINOGEN,URINE 0.2 EU/dL (0.2)
[2021-03-04 01:10] LABS: CALCIUM, SERUM 8.8 mg/dL (8.5-10.1); CARBON DIOXIDE 27 mmol/L (21-32); CHLORIDE 102 mmol/L (98-107); CREATININE 1.2 mg/dL (0.6-1.3); GLUCOSE 152 mg/dL (74-106); POTASSIUM 3.8 mmol/L (3.5-5.1); SODIUM SERUM 137 mmol/L (136-145); UREA NITROGEN, BLOOD 15 mg/dL (7-18)
[2021-03-04 01:16] LABS: BACTERIA,URINE None seen /HPF (None Seen); RBC,URINE 0-2 /HPF (0-2); SQUAMOUS EPITHELIAL CELL,UR Rare /HPF (None Seen); WBC,URINE 0-2 /HPF (0-3)
[2021-03-04 01:16] LABS: ALANINE AMINOTRANSFERASE 21 U/L (12-78); ALBUMIN 3.7 g/dL (3.4-5.0); ALKALINE PHOSPHATASE 112 U/L (46-116); ASPARTATE AMINOTRANSFERASE 22 U/L (15-37); BILIRUBIN,DIRECT 0.1 mg/dL (0.0-0.2); BILIRUBIN,TOTAL 0.2 mg/dL (0.2-1.0); TOTAL PROTEIN, SERUM 7.8 g/dL (6.4-8.2)
[2021-03-04 01:17] LABS: ACETAMINOPHEN < 0 ug/ml (10-30); ALCOHOL, BLOOD < 0 mg/dL (0-0)
--- NOTE | 2021-03-04 03:12 | NUR ---
CLINICAL INFORMATION FAXED TO [facility]
--- NOTE | 2021-03-04 05:42 | NUR ---
NOTED TACHYCARDIA, MD AWARE
[2021-03-04] MEDS ORDERED: LORAZEPAM INJ 2 MG/ML VIAL ONE (05:54)
[2021-03-04] MEDS ORDERED: LORAZEPAM INJ 2 MG/ML VIAL IM ONE (06:00)
--- NOTE | 2021-03-04 06:43 | NUR ---
TRANSFER INFORMATION: PT ACCEPTED TO [facility] ACCEPTING MD: DR. CARDONA NUMBER FOR REPORT: [phone]
--- NOTE | 2021-03-04 06:46 | NUR ---
ATTEMPTED TO GIVE REPORT, INFORMED TO CALL BACK AFTER 729 OR AFTER RECEIVING AMBULANCE ETA.
--- NOTE | 2021-03-04 06:49 | NUR ---
CALLED CALL THE CAR FOR TRANSPORTATION. WILL CALL BACK WITH ETA, RESERVATION #[id number]
--- NOTE | 2021-03-04 06:52 | NUR ---
[facility]UL[facility] ETA [phone]
--- NOTE | 2021-03-04 06:55 | NUR ---
REPORT GIVEN TO MIKE VILLATORO FROM [facility] FOR [facility]
[2021-03-04 07:32] VITALS: BP 101/65
--- NOTE | 2021-03-04 07:33 | NUR ---
TRANSPORTED TO [facility]. STABLE CONDITION.
== END 2021-03-04 07:34 ==
LOC: ER 00:31
DX: R45.851 Suicidal ideations (principal); F20.9 Schizophrenia, unspecified; F31.9 Bipolar disorder, unspecified; Z88.8 Allergy status to other drugs, medicaments and biological substances; Z20.822 Contact with and (suspected) exposure to COVID-19
CPT/HCPCS: 36415; 80048; 80076; 80143; 80307; 80320; 81001; 85025; 87426; 96372; 99285; C9803; J2060; G0480

== ENCOUNTER 2021-03-22 15:47 | Inpatient (IN) | payer OTHER ==
[~2021-03-22] VITALS: Ht 175.3 cm; Wt 86.2 kg
--- NOTE | 2021-03-22 16:10 | NUR ---
The patient bib for "Racing thought- feel suicidal walk into incoming train". Myles pain. In room air and denies SOB. Respiration regular and unlabored. Will continue to monitor the patient.
[2021-03-22] MEDS ORDERED: LORAZEPAM 1 MG TABLET PO ONE (16:30)
[2021-03-22 16:33] LABS: BILIRUBIN,URINE MODERATE (NEGATIVE); COLOR,URINE DARK YELLOW (YELLOW); LEUKOCYTE ESTERASE ,URINE Negative (NEGATIVE); NITRITE, URINE Negative (NEGATIVE); PH,URINE 5.5 (5.0-8.0); PROTEIN,URINE >=300 mg/dl (NEGATIVE); UGLUCOSE Negative (NEGATIVE)
[2021-03-22 16:34] LABS: BACTERIA,URINE Rare /HPF (None Seen); SQUAMOUS EPITHELIAL CELL,UR Few /HPF (None Seen); WBC,URINE NONE SEEN /HPF (0-3)
[2021-03-22 16:42] LABS: BASOPHILS # (AUTO) 0.1 K/uL (0.0-0.2); BASOPHILS % (AUTO) 0.6 % (0.0-2.0); HEMATOCRIT 33 % (39-51); LYMPHOCYTES # (AUTO) 1.1 K/uL (0.8-4.8); LYMPHOCYTES % (AUTO) 13.3 % (20.0-44.0); MEAN CORPUSCULAR HGB CONC 33 g/dl (31.0-36.0); MEAN CORPUSCULAR VOLUME 98 fL (80-96); MONOCYTES % (AUTO) 22.9 % (2.0-12.0); NEUTROPHILS # (AUTO) 5.4 K/uL (1.8-8.9); NEUTROPHILS % (AUTO) 63.2 % (43.0-81.0); PLATELET COUNT (AUTO) 292 K/uL (150-450); RED BLOOD CELL COUNT(AUTO) 3.38 MIL/uL (4.5-6.0); WHITE BLOOD COUNT (AUTO) 8.5 K/uL (4.3-11.0)
[2021-03-22] MEDS ORDERED: LORAZEPAM 1 MG TABLET ONE (16:43)
[2021-03-22 16:47] LABS: CARBON DIOXIDE 27 mmol/L (21-32); CHLORIDE 94 mmol/L (98-107); CREATININE 2.3 mg/dL (0.6-1.3); GLUCOSE 101 mg/dL (74-106); POTASSIUM 4.2 mmol/L (3.5-5.1); SODIUM SERUM 130 mmol/L (136-145); UREA NITROGEN, BLOOD 21 mg/dL (7-18)
--- NOTE | 2021-03-22 16:48 | NUR ---
COVID SWAB SENT
[2021-03-22 16:54] LABS: ALANINE AMINOTRANSFERASE 19 U/L (12-78); ALBUMIN 3.1 g/dL (3.4-5.0); ALKALINE PHOSPHATASE 67 U/L (46-116); ASPARTATE AMINOTRANSFERASE 34 U/L (15-37); BILIRUBIN,DIRECT 0.2 mg/dL (0.0-0.2); BILIRUBIN,TOTAL 0.6 mg/dL (0.2-1.0); TOTAL PROTEIN, SERUM 8.8 g/dL (6.4-8.2)
--- NOTE | 2021-03-22 16:55 | NUR ---
ORDERED FOOD TRAY
[2021-03-22 16:56] LABS: ACETAMINOPHEN < 2 ug/ml (10-30); ALCOHOL, BLOOD < 3 mg/dL (0-0)
[2021-03-22] MEDS ORDERED: IV NS 0.9% 1,000 ML BAG IV ONE (17:30)
[2021-03-22 18:01] LABS: BAND % (MANUAL) 2 % (0.0-5.0); LYMPHOCYTES % (MANUAL) 21 % (16-48); MONOCYTES % (MANUAL) 16 % (0-11.0); NEUTROPHILS % (MANUAL) 61 (42-76)
[2021-03-22 19:08] LABS: CALCIUM, SERUM 8.5 mg/dL (8.5-10.1); POTASSIUM 4.4 mmol/L (3.5-5.1)
--- NOTE | 2021-03-22 19:26 | NUR ---
facesheet and clinicals faxed to [facility].
[2021-03-22] MEDS ORDERED: Z GUARD REMEDY 2 OZ OINT TP PRN (22:00)
[2021-03-22] MEDS ORDERED: ZOLPIDEM TARTRATE 5 MG TABLET PO PRN (22:00)
[2021-03-22] MEDS ORDERED: MAG HYDROX/AL HYDROX/SIMETH 30 ML UDC PO PRN (22:00)
[2021-03-22] MEDS ORDERED: MAGNESIUM HYDROXIDE 30 ML UDC PO PRN (22:00)
[2021-03-22] MEDS ORDERED: ONDANSETRON HCL/PF 4 MG/2 ML VIAL IVP PRN (22:00)
--- NOTE | 2021-03-23 | NUR ---
report given to Linda MCKEON for PITO.
--- NOTE | 2021-03-23 00:06 | NUR ---
MS RN Admitting/Opening Notes Patient arrived to the unit via wheelchair at approximately 0006 . Report was given by Nurse Reid. Patient's alert and oriented x4. Patient's on room air with no respiratory distress noted. Patient has an IV access on his RAC gauge #20, which is intact and patent. Patient is in no acute distress at this time. Safety measures are kept in place: Bed locked, side rails up x2, and call light within reach of the patient. Patient was oriented to the staff and room. Will continue to monitor the patient.
[2021-03-23 00:20] VITALS: BP 128/58
[2021-03-23 00:23] VITALS: BP 128/58
[2021-03-23] MEDS: IV NS 0.9% 1,000 ML IV PRN ×3 (03:23→17:02)
[2021-03-23 06:08] LABS: BASOPHILS % (AUTO) 0.2 % (0.0-2.0); EOSINOPHILS % (AUTO) 0.3 % (0.0-6.0); HEMATOCRIT 31 % (39-51); HEMOGLOBIN 10.2 g/dL (13.5-17.5); LYMPHOCYTES # (AUTO) 1.3 K/uL (0.8-4.8); LYMPHOCYTES % (AUTO) 17.4 % (20.0-44.0); MEAN CORPUSCULAR HGB CONC 33 g/dl (31.0-36.0); MEAN CORPUSCULAR VOLUME 98 fL (80-96); MONOCYTES # (AUTO) 1.8 K/uL (0.1-1.30); NEUTROPHILS # (AUTO) 4.5 K/uL (1.8-8.9); NEUTROPHILS % (AUTO) 59.1 % (43.0-81.0); PLATELET COUNT (AUTO) 296 K/uL (150-450); RED BLOOD CELL COUNT(AUTO) 3.16 MIL/uL (4.5-6.0); WHITE BLOOD COUNT (AUTO) 7.7 K/uL (4.3-11.0)
[2021-03-23 06:48] LABS: ALBUMIN 2.6 g/dL (3.4-5.0); BILIRUBIN,TOTAL 0.6 mg/dL (0.2-1.0); CALCIUM, SERUM 8.5 mg/dL (8.5-10.1); CREATININE 1.6 mg/dL (0.6-1.3); MAGNESIUM 2.1 mg/dL (1.8-2.4); PHOSPHORUS 2.6 mg/dL (2.5-4.9); POTASSIUM 4.2 mmol/L (3.5-5.1); TOTAL PROTEIN, SERUM 7.8 g/dL (6.4-8.2)
--- NOTE | 2021-03-23 07:00 | NUR ---
MS RN Closing Notes Patient was last seen sleeping in bed. Patient's alert and oriented x4. Patient's on room air with no respiratory distress noted. Patient has an IV access on his RAC gauge #20, which is running NS at 150ml/hr currently. Patient is in no acute distress at this time. Safety measures are kept in place: Bed locked, side rails up x2, and call light within reach of the patient. Will endorse care to the day shift nurse.
--- NOTE | 2021-03-23 07:01 | NUR ---
MS RN Notes Orders for a physician consult, social and political studies professor consult, and a 1:1 sitter was made.
--- NOTE | 2021-03-23 07:45 | NUR ---
MS RN OPENING NOTES RECEIVED PATIENT ASLEEP IN BED, EASY TO AROUSE. ALERT AND ORIENTED X4. TOLERATING WELL ON ROOM AIR. NO SIGNS OR SYMPTOMS OF DISTRESS NOTED. NO COMPLAINTS OF PAIN AT THIS TIME. IV ACCESS RAC#22 PATENT AND INTACT WITH NS RUNNING AT @150MLS/HR. 1:1 SITTER PRESENT AT BEDSIDE. ABLE TO MAKE NEEDS KNOWN. SAFETY MEASURES IN PLACE. SIDE RAILS X 2 RAISED. BED LOWERED. CALL LIGHT WITHIN REACH. WILL CONTINUE TO MONITOR THROUGHOUT SHIFT.
[2021-03-23] MEDS: PANTOPRAZOLE 40 MG TABLET.DR PO SCH (08:23)
[2021-03-23 11:18] LABS: LYMPHOCYTES % (MANUAL) 19 % (16-48); MONOCYTES % (MANUAL) 17 % (0-11.0); NEUTROPHILS % (MANUAL) 64 (42-76)
[2021-03-23] MEDS ORDERED: LORAZEPAM 1 MG TABLET PO PRN (14:00)
[2021-03-23] MEDS: OLANZAPINE 5 MG TABLET PO SCH ×2 (14:08→21:40)
[2021-03-23] MEDS: ACETAMINOPHEN 325 MG TABLET PO PRN (15:47)
--- NOTE | 2021-03-23 19:11 | NUR ---
MS RN CLOSING NOTES PATIENT ASLEEP IN BED, EASY TO AROUSE. ALERT AND ORIENTED X4. TOLERATING WELL ON ROOM AIR. NO SIGNS OR SYMPTOMS OF DISTRESS NOTED. NO COMPLAINTS OF PAIN AT THIS TIME. IV ACCESS RAC#22 PATENT AND INTACT WITH NS RUNNING AT @150MLS/HR. 1:1 SITTER PRESENT AT BEDSIDE. ABLE TO MAKE NEEDS KNOWN. SAFETY MEASURES IN PLACE. SIDE RAILS X 2 RAISED. BED LOWERED. CALL LIGHT WITHIN REACH. TEMP OF 100.9 @1520. GAVE TYLENOL @1527, TEMPERATURE DECREASED AT 99.2 WILL ENDORSE CONTINUITY OF CARE TO NEXT NURSE.
--- NOTE | 2021-03-23 19:23 | NUR ---
MS RN OPENING NOTES: RECEIVED PATIENT SLEEP IN BED COMFORTABLY, AROUSABLE TO STIMULI, BED IN LOW POSITION, CALL LIGHTS WITHIN REACH, NO COMPLAIN OF PAIN AND SICOMFORT AT THIS TIME, IV LINE ON RAC #22 WITH NSS@150ML INFUSING WELL, WITH !:! SITTER, ALL NEEDS MET, KEPT CLEAN AND DRY, WILL CONTINUE TO MONITOR.
[2021-03-24] MEDS: ACETAMINOPHEN 325 MG TABLET PO PRN (05:39)
[2021-03-24] MEDS: IV NS 0.9% 1,000 ML IV PRN (05:47)
--- NOTE | 2021-03-24 07:22 | NUR ---
MS RN OPENING NOTE: REPORT OBTAINED FROM NIGHT NURSE AND THIS NURSE ASSUME CARE OF PATIENT. RECEIVED PATIENT ASLEEP IN BED COMFORTABLY, BED IN LOW POSITION, CALL LIGHTS WITHIN REACH, NO COMPLAIN OF PAIN AND DISCOMOFRT AT THIS TIME, PATIENT WITH IV LINE ON RAC WITH PRN NSS@150ML/HR INFUSING WELL. PATIENT IS A/LX4 AMBULATORY WITH SUPERVISION, AFEB.
--- NOTE | 2021-03-24 07:22 | NUR ---
MS RN CLOSING NOTE: PATIENT SLEEP IN BED COMFORTABLY, BED IN LOW POSITION, CALL LIGHTS WITHIN REACH, NO COMPLAIN OF PAIN AND DISCOMOFRT AT THIS TIME, PATIENT WITH IV LINE ON RAC WITH PRN NSS@150ML/HR INFUSING WELL. PATIENT IS A/LX4 AMBULATORY WITH SUPERVISION, WITH FEVER AT 101.1 SPONGE BATH GIVEN,TYLENOL 650MG Q6H GIVEN PRN FOR FEVER, ICE PACK ON BOTH ARMPIT.ON MONITOR.ALL NEEDS MET, KEPT CLEAN AND DRY, ENDORSE TO INCOMING SHIFT.
[2021-03-24 07:38] LABS: CALCIUM, SERUM 8.6 mg/dL (8.5-10.1); CREATININE 1.1 mg/dL (0.6-1.3); POTASSIUM 4.2 mmol/L (3.5-5.1)
[2021-03-24 07:57] VITALS: BP 95/54
[2021-03-24] MEDS: PANTOPRAZOLE 40 MG TABLET.DR PO SCH ×2 (09:27→09:55)
[2021-03-24] MEDS: OLANZAPINE 5 MG TABLET PO SCH (09:27)
[2021-03-24] MEDS ORDERED: OLAN5TAB3 PO (11:37)
[2021-03-24] MEDS ORDERED: Lorazepam PO (11:37)
[2021-03-24] MEDS ORDERED: PANT40TA2 PO (11:37)
--- NOTE | 2021-03-24 12:00 | NUR ---
NURSE NOTES PATIENT FRIEND JEISON HAD CALLED CONCERNING THE PATIENT. JEISON NUMBER IS [phone]. WILL GIVE HIM UPDATE SINCE PATIENT LIVES WITH HIM. HE ASKED IF PATIENT WILL BE DISCHARGED.
[2021-03-24 16:00] VITALS: BP 109/64
[2021-03-24 16:41] VITALS: BP 98/54
--- NOTE | 2021-03-24 18:30 | NUR ---
DISCHARGE NOTES THERE ARE NO ROOM AT [facility], PER CASE MANAGEMENT. BUT WAS TOLD THAT THE PATIENT CAN TAKE HIMSELF BY BUS TO THIS PLACE AND THEY WOULD TAKE HIM. D/C INSTRUCTIONS GIVEN TO PATIENT AND PATIENT VERBALIZED UNDERSTANIDNGS OF INSTRUCTIONS. COPY GIVEN. SIGNED PROPERTY MANAGEMENT FORM AND D/C INSTRUCTIONS. COPY OF BOTH PAGES GIVEN TO PATIENT. PATIENT WAS GIVE A TAP CARD FOR HIM TO TAKE THE BUS TO [place]. TERRITORY DEVELOPMENT MANAGER WALKED THE PATIENT OUTSIDE OF HOSPITAL
--- NOTE | 2021-03-25 16:10 | NUR ---
SS Consult requested over the weekend for homelessness. However, pt. has already departed.
== END 2021-03-24 18:50 | disposition home or self-care (01) | DRG 422 ==
LOC: ER 15:52 → MED 22:44
PROVIDERS: ADMIT Hospitalist; ATTEND Nurse Practitioner Acute Care
DX: E86.9 Volume depletion, unspecified (principal); N17.0 Acute kidney failure with tubular necrosis; E44.1 Mild protein-calorie malnutrition; E87.1 Hypo-osmolality and hyponatremia; E88.09 Other disorders of plasma-protein metabolism, not elsewhere classified; F41.9 Anxiety disorder, unspecified; Z68.28 Body mass index [BMI] 28.0-28.9, adult; Z20.822 Contact with and (suspected) exposure to COVID-19; N13.9 Obstructive and reflux uropathy, unspecified; F20.0 Paranoid schizophrenia; F12.10 Cannabis abuse, uncomplicated; F17.210 Nicotine dependence, cigarettes, uncomplicated; Z71.6 Tobacco abuse counseling; Z59.0 Homelessness; F15.188 Other stimulant abuse with other stimulant-induced disorder
CPT/HCPCS: 36415; 76770-TC; 80048-TC; 80053-TC; 80061-TC; 80076-TC; 81001; 83735-TC; 84100-TC; 85025-TC; 87081-TC; C9803; G0378; G0480; J7030

== ENCOUNTER 2021-06-15 22:20 | Emergency (ER) | payer OTHER ==
[~2021-06-15] VITALS: Ht 185.4 cm; Wt 79.8 kg
[~2021-06-15 22:20] MED LIST changes: -DIPH50VI14 IV; -Divalproex Sodium PO; -EPIN0.3P3 IJ; -ESCI10TA PO; -INSU100V28 SQ; +Lorazepam PO; +OLAN5TAB3 PO; +PANT40TA2 PO; -QUET100T PO
--- NOTE | 2021-06-16 00:50 | NUR ---
PT TO ER C/O SI, PLAN TO OD ON DRUGS. PT MEDICAL CLEARANCE FOR VOLUNTARY PSYCH TO [facility]. NO IMMEDIATE SIGNS OF DISTRESS NOTED. PT CALM AND COOPERATIVE. WILL CONT TO MONITOR PT.
[2021-06-16] MEDS ORDERED: LEVETIRACETAM (250 MG) 250 MG TABLET PO ONE ×2 (01:00→01:12)
[2021-06-16] MEDS ORDERED: ARIPIPRAZOLE 5 MG TABLET PO ONE (01:00)
[2021-06-16] MEDS ORDERED: ARIPIPRAZOLE 2 MG TABLET ONE (01:12)
[2021-06-16 01:16] LABS: BASOPHILS # (AUTO) 0.1 K/uL (0.0-0.2); BASOPHILS % (AUTO) 0.5 % (0.0-2.0); EOSINOPHILS % (AUTO) 0.1 % (0.0-6.0); HEMATOCRIT 40 % (39-51); HEMOGLOBIN 13.1 g/dL (13.5-17.5); LYMPHOCYTES # (AUTO) 2.4 K/uL (0.8-4.8); LYMPHOCYTES % (AUTO) 15.4 % (20.0-44.0); MEAN CORPUSCULAR HGB CONC 33 g/dl (31.0-36.0); MEAN CORPUSCULAR VOLUME 99 fL (80-96); MONOCYTES % (AUTO) 12.9 % (2.0-12.0); NEUTROPHILS # (AUTO) 10.9 K/uL (1.8-8.9); NEUTROPHILS % (AUTO) 71.1 % (43.0-81.0); PLATELET COUNT (AUTO) 329 K/uL (150-450); RED BLOOD CELL COUNT(AUTO) 4.02 MIL/uL (4.5-6.0); WHITE BLOOD COUNT (AUTO) 15.4 K/uL (4.3-11.0)
[2021-06-16 01:30] LABS: CALCIUM, SERUM 9.8 mg/dL (8.5-10.1); CARBON DIOXIDE 27 mmol/L (21-32); CHLORIDE 103 mmol/L (98-107); CREATININE 1.6 mg/dL (0.6-1.3); GLUCOSE 106 mg/dL (74-106); POTASSIUM 4.2 mmol/L (3.5-5.1); SODIUM SERUM 140 mmol/L (136-145); UREA NITROGEN, BLOOD 34 mg/dL (7-18)
[2021-06-16 01:36] LABS: ALANINE AMINOTRANSFERASE 19 U/L (12-78); ALBUMIN 4.8 g/dL (3.4-5.0); ALKALINE PHOSPHATASE 138 U/L (46-116); ASPARTATE AMINOTRANSFERASE 33 U/L (15-37); BILIRUBIN,DIRECT 0.2 mg/dL (0.0-0.2); BILIRUBIN,TOTAL 0.7 mg/dL (0.2-1.0); TOTAL PROTEIN, SERUM 9.8 g/dL (6.4-8.2)
[2021-06-16 01:43] LABS: ACETAMINOPHEN < 2 ug/ml (10-30); ALCOHOL, BLOOD < 3 mg/dL (0-0)
[2021-06-16 02:12] LABS: BILIRUBIN,URINE NEGATIVE (NEGATIVE); COLOR,URINE YELLOW (YELLOW); LEUKOCYTE ESTERASE ,URINE NEGATIVE (NEGATIVE); NITRITE, URINE NEGATIVE (NEGATIVE); PROTEIN,URINE 30 mg/dl (NEGATIVE); UGLUCOSE NEGATIVE (NEGATIVE); UROBILINOGEN,URINE 0.2 EU/dL (0.2)
[2021-06-16 02:14] LABS: BACTERIA,URINE None seen /HPF (None Seen); HYALINE CASTS, URINE Few /LPF (None Seen); MUCUS,URINE Few /LPF (None Seen); RBC,URINE 0-2 /HPF (0-2); SQUAMOUS EPITHELIAL CELL,UR Few /HPF (None Seen); WBC,URINE 0-2 /HPF (0-3)
--- NOTE | 2021-06-16 03:39 | NUR ---
FACESHEET AND CLINICALS FAXED TO [facility].
--- NOTE | 2021-06-16 05:02 | NUR ---
PT SLEEPING IN [facility]. NO SIGNS OF DISTRESS NOTED. WILL CONT TO MONITOR PT.
--- NOTE | 2021-06-16 08:18 | NUR ---
CALLED [facility] SPOKE WITH HO, PT CHART IS BEING REVIEWED AND WILL UPDATE US.
--- NOTE | 2021-06-16 09:08 | NUR ---
PT ACCEPTED TO [facility] UNDER DR. CARDONA CALL FOR REPORT [phone] TY.
--- NOTE | 2021-06-16 09:21 | NUR ---
[facility]ED [facility] ETA 30 MINS PER STACY
[2021-06-16 09:30] VITALS: BP 125/76
--- NOTE | 2021-06-16 09:36 | NUR ---
PT PROVIDED W/ BREAKFAST TRAY. VITALS STABLE.
== END 2021-06-16 10:10 ==
LOC: ER 22:20
DX: F20.9 Schizophrenia, unspecified (principal); F31.9 Bipolar disorder, unspecified; F17.210 Nicotine dependence, cigarettes, uncomplicated; Z20.822 Contact with and (suspected) exposure to COVID-19; F19.10 Other psychoactive substance abuse, uncomplicated
CPT/HCPCS: 36415; 80048; 80076; 80143; 80307; 80320; 81001; 85025; 87426; 99285; 99406; C9803; G0480